=== PATIENT | male | born 1995 | race Two or more races ===

== ENCOUNTER 2018-07-23 01:40 | Emergency (ER) | payer OTHER ==
[~2018-07-23] VITALS: Ht 167.6 cm; Wt 63.5 kg
--- NOTE | 2018-07-23 01:55 | NUR ---
PT BIB RA. A/OX1, RESPONSIVE TO VERBAL AND TACTILE STIMULI. PER PARAMEDICS, PT WAS FOUND ON BUS INTOXICATED. PT DOES NOT APPEAR TO BE IN ANY APPARENT DISTRESS. PT IS DROWSY, BUT AROUSABLE TO VERBAL AND TACTILE STIMULI. PT ARRIVED IN UNIT W/ A BOTTLE OF VODKA IN HIS BAG.
[2018-07-23] MEDS ORDERED: ONDANSETRON 4 MG/2 ML VIAL IV ONE (02:00)
[2018-07-23] MEDS ORDERED: ONDANSETRON 4 MG/2 ML VIAL ONE (02:02)
[2018-07-23] MEDS ORDERED: METOCLOPRAMIDE HCL 10 MG/2 ML VIAL ONE (02:18)
[2018-07-23 02:20] LABS: BASOPHILS # (AUTO) 0.1 K/uL (0.0-8.0); BASOPHILS % (AUTO) 1.1 % (0.0-2.0); EOSINOPHILS % (AUTO) 0.3 % (0.0-7.0); HEMATOCRIT 42.3 % (36.7-47.1); HEMOGLOBIN 14.8 g/dL (12.5-16.3); LYMPHOCYTES # (AUTO) 2.1 K/uL (20.0-40.0); LYMPHOCYTES % (AUTO) 38.3 % (20.5-51.5); MEAN CORPUSCULAR HEMOGLOBIN 30.1 uug (23.8-33.4); MEAN CORPUSCULAR HGB CONC 35 g/dL (32.5-36.3); MEAN CORPUSCULAR VOLUME 86.1 fL (73.0-96.2); MONOCYTES # (AUTO) 0.4 K/uL (2.0-10.0); MONOCYTES % (AUTO) 8.1 % (0.0-11.0); NEUTROPHILS # (AUTO) 2.8 K/uL (1.8-8.9); NEUTROPHILS % (AUTO) 52.2 % (38.5-71.5); PLATELET COUNT (AUTO) 271 K/uL (152-348); RED BLOOD CELL COUNT(AUTO) 4.91 MIL/uL (4.06-5.63); WHITE BLOOD COUNT (AUTO) 5.5 K/uL (3.6-10.2)
[2018-07-23 02:25] LABS: CARBON DIOXIDE 27 mmol/L (21-32); CHLORIDE 107 mmol/L (98-107); CREATININE 0.8 mg/dL (0.6-1.3); GLUCOSE 122 mg/dL (74-106); POTASSIUM 3.7 mmol/L (3.5-5.1); UREA NITROGEN, BLOOD 11 mg/dL (7-18)
[2018-07-23] MEDS ORDERED: METOCLOPRAMIDE HCL 10 MG/2 ML VIAL IM ONE (02:30)
[2018-07-23 02:31] LABS: ALANINE AMINOTRANSFERASE 23 U/L (16-63); ALKALINE PHOSPHATASE 117 U/L (50-136); ASPARTATE AMINOTRANSFERASE 36 U/L (15-37); BILIRUBIN,DIRECT < 0.1 mg/dL (0.0-0.2); BILIRUBIN,TOTAL 0.2 mg/dL (0.2-1.0); ETHANOL 471 MG/DL (0-0); TOTAL PROTEIN, SERUM 7.9 g/dL (6.4-8.2)
[2018-07-23 02:40] LABS: ACETAMINOPHEN < 2.0 ug/mL (10-30)
--- NOTE | 2018-07-23 02:55 | NUR ---
PT MEDICATED ORDERED BY MD. PT SLEEPING IN BED AT THIS TIME. VSS. DOES NOT APPEAR TO BE IN ANY APPARENT DISTRESS.
--- NOTE | 2018-07-23 07:08 | NUR ---
PT SLEEPING IN BED. VSS. GAVE SHIFT REPORT TO SHARON SKINNER.
--- NOTE | 2018-07-23 08:10 | NUR ---
PT RESTING, NO SIGN OFDISTRESS. OFFERED BF, PT REFUSED.
--- NOTE | 2018-07-23 10:31 | NUR ---
PT AWAKE, AXOX4. PT WALKS IN STEADY GAIT. PT SAYS HAS A PLACE TO GO.
--- NOTE | 2018-07-23 10:37 | NUR ---
Patient discharged to home in stable conditon. Written and verbal after care instructions given. Patient verbalizes understanding of instructions.
== END 2018-07-23 10:46 | disposition home or self-care (01) ==
LOC: ER 01:42
DX: F10.129 Alcohol abuse with intoxication, unspecified (principal); Z59.0 Homelessness
CPT/HCPCS: 36415; 83690; 85025; 93005; A4663; G0480; G0480-TC; J2405; J2765

== ENCOUNTER 2022-10-13 00:08 | Emergency (ER) | payer OTHER ==
[~2022-10-13] VITALS: Ht 167.6 cm; Wt 63.5 kg
[2022-10-13 01:46] LABS: HEMATOCRIT 44.8 % (36.7-47.1); MEAN CORPUSCULAR HEMOGLOBIN 28.6 uug (23.8-33.4); PLATELET COUNT (AUTO) 279 K/uL (152-348)
[2022-10-13 01:55] LABS: BILIRUBIN,DIRECT 0.1 mg/dL (0.0-0.2); BILIRUBIN,TOTAL 0.1 mg/dL (0.2-1.0); CREATININE 0.8 mg/dL (0.6-1.3); TOTAL PROTEIN, SERUM 8.3 g/dL (6.4-8.2)
[2022-10-13] MEDS ORDERED: IV NORMAL SALINE 1000 ML BAG IV ONE (03:15)
--- NOTE | 2022-10-13 06:04 | NUR ---
Patient discharged to home in stable condition. Written and verbal after care instructions given. Patient verbalizes understanding of instructions. Stressed follow up or return to ER for worsening s/s.
[2022-10-13 06:05] VITALS: BP 136/72
== END 2022-10-13 06:06 | disposition home or self-care (01) ==
LOC: ER 00:11
DX: F10.129 Alcohol abuse with intoxication, unspecified (principal); Y90.8 Blood alcohol level of 240 mg/100 ml or more
CPT/HCPCS: 80076; 80048; 82962; 85025; 36415; 99284; 96360; 96361; 80320; J7040; A4663; G0480

== ENCOUNTER 2022-11-03 10:57 | Emergency (ER) | payer OTHER ==
[~2022-11-03] VITALS: Ht 172.7 cm; Wt 72.6 kg
[2022-11-03] MEDS ORDERED: ONDANSETRON 4 MG/2 ML VIAL ONE (11:06)
[2022-11-03] MEDS ORDERED: HALOPERIDOL LACTATE 5 MG/1 ML VIAL ONE (11:06)
[2022-11-03] MEDS ORDERED: ONDANSETRON 4 MG/2 ML VIAL IM ONE (11:15)
[2022-11-03] MEDS ORDERED: HALOPERIDOL LACTATE 5 MG/1 ML VIAL IM ONE (11:15)
--- NOTE | 2022-11-03 11:18 | NUR ---
Pt BIBA R99 d/t ETOH Intoxication and AMS. Seen by Dr. Bernal for MSE.
[2022-11-03 11:31] LABS: HEMATOCRIT 40.2 % (36.7-47.1); MEAN CORPUSCULAR HEMOGLOBIN 28.7 uug (23.8-33.4); MEAN CORPUSCULAR VOLUME 86.6 fL (73.0-96.2); PLATELET COUNT (AUTO) 287 K/uL (152-348)
[2022-11-03 11:49] LABS: ALANINE AMINOTRANSFERASE 114 U/L (16-63); ALKALINE PHOSPHATASE 104 U/L (50-136); BILIRUBIN,TOTAL 0.5 mg/dL (0.2-1.0); CARBON DIOXIDE 27 mmol/L (21-32); CHLORIDE 100 mmol/L (98-107); CREATININE 0.8 mg/dL (0.6-1.3); GLUCOSE 123 mg/dL (74-106); POTASSIUM 3.7 mmol/L (3.5-5.1); UREA NITROGEN, BLOOD 6 mg/dL (7-18)
[2022-11-03 12:06] LABS: ASPARTATE AMINOTRANSFERASE 243 U/L (15-37)
[2022-11-03 12:47] LABS: ACETAMINOPHEN < 10.0 ug/mL (10-30)
--- NOTE | 2022-11-03 13:45 | NUR ---
SW attempted to do an assessment but the patient was unarousable. SW was unable to ascertain primary contact information or current living situation. MARIYA placed homeless resources for [facility] [address] [place] [address] ([phone]) and [facility] [address] [facility] [address] ([phone]). MARIYA gave resources for [facility] [address] [facility] [address] in the patient's chart. Patient's alcohol level is 521 and SW placed substance abuse resources for [facility] [address] [facility] [address] ([phone]), [facility] [address] [facility] [address] ([phone]), and [facility] [address] [facility] [address] ([phone]) in the patient's chart. MARIYA informed patient's nurse, Isis and Dr. Bernal and SW will continue to follow up.
--- NOTE | 2022-11-03 15:00 | NUR ---
Tried waking up, pt still sleeping, moans and moves only.
--- NOTE | 2022-11-03 18:15 | NUR ---
Tried waking up the pt again, only moans and moves his body. aware.
--- NOTE | 2022-11-03 19:27 | NUR ---
Endorsed to Aviva HERRERA.
--- NOTE | 2022-11-03 21:50 | NUR ---
Pt. asleep at this time
[2022-11-03] MEDS ORDERED: FAMOTIDINE 20 MG TABLET PO ONE (23:15)
[2022-11-03] MEDS ORDERED: FAMOTIDINE 20 MG TABLET ONE (23:16)
[2022-11-04] MEDS ORDERED: CHLORDIAZEPOXIDE HCL 25 MG CAPSULE PO ONE ×2 (03:30→08:00)
[2022-11-04] MEDS ORDERED: CHLORDIAZEPOXIDE HCL 25 MG CAPSULE ONE ×2 (03:30→08:02)
--- NOTE | 2022-11-04 07:30 | NUR ---
Pt awake and alert, eating breakfast. Pt states his sister is picking him up at 0800.
--- NOTE | 2022-11-04 08:10 | NUR ---
MARIYA provided the patient with resources for substance abuse from [address] [address] ([phone]), [facility] [address] [facility] [address] ([phone]), and [address] [address] ([phone]). Patient appears motivated for treatment and states he is going to go to [place] [phone] ([phone]) for detox when he is discharged. Patient states his sister will pick him up and SW confirmed with the patient's sister ([phone]) over the phone.
--- NOTE | 2022-11-04 08:15 | NUR ---
Patient discharged to home in stable condition. Written and verbal after care instructions given. Patient verbalizes understanding of instructions. Stressed follow up or return to ER for worsening s/s. Pt ambulated out of the ER with steady gait. Pt was given referrals by social security assessor as well.
== END 2022-11-04 08:57 | disposition home or self-care (01) ==
LOC: ER 10:57
DX: F10.129 Alcohol abuse with intoxication, unspecified (principal); Y90.8 Blood alcohol level of 240 mg/100 ml or more; Z59.00 Homelessness unspecified; R45.1 Restlessness and agitation
CPT/HCPCS: 80053; 85025; 84484 ×2; 36415; 71045; 99291; 96372 ×2; 80299; 80320; 80179; J1630; J2405; 93005; A4663; G0480